=== PATIENT | female | born 1990 | race American Indian/Alaskan Native ===

== ENCOUNTER 2019-02-23 18:59 | Emergency (ER) | payer OTHER ==
--- NOTE | 2019-02-23 19:15 | Emergency Department Report ---
Blank Doc - Documentation Documentation: This is a 28-year-old female that presents with chest pain. Denies any SOB. This initial assessment/diagnostic orders/clinical plan/treatment(s) is/are subject to change based on patient's health status, clinical progression and re- assessment by fellow clinical providers in the ED. Further treatment and workup at subsequent clinical providers discretion. Patient/guardians urged not to elope from the ED as their condition may be serious if not clinically assessed and managed. Initial orders include: 1- Patient sent to [facility] for further evaluation and treatment 2- labs 3- EKG 4- CXR
[2019-02-23 19:36] LABS: Basophils # (Auto) 0.1 K/mm3 (0.0-0.1); Basophils % (Auto) 0.8 % (0.0-1.8); Eosinophils # (Auto) 0.1 K/mm3 (0.0-0.4); Eosinophils % (Auto) 0.7 % (0.0-4.3); Hematocrit 36.3 % (30.3-42.9); Hemoglobin 12.2 gm/dl (10.1-14.3); Lymphocytes # (Auto) 3.5 K/mm3 (1.2-5.4); Lymphocytes % (Auto) 41.1 % (13.4-35.0); Mean Corpuscular HGB Conc 34 % (30-34); Mean Corpuscular Volume 87 fl (79-97); Monocytes # (Auto) 0.5 K/mm3 (0.0-0.8); Monocytes % (Auto) 5.8 % (0.0-7.3); Platelet Count 342 K/mm3 (140-440); Red Blood Count 4.16 M/mm3 (3.65-5.03)
[2019-02-23 19:47] LABS: INR 0.94 (0.87-1.13)
[2019-02-23 19:48] LABS: Partial Thromboplastin Time 22.7 Sec. (24.2-36.6)
[2019-02-23 20:01] VITALS: BP 140/92
[2019-02-23 20:08] LABS: BUN/Creatinine Ratio 13; Blood Urea Nitrogen 9 mg/dL (7-17); Calcium 9.1 mg/dL (8.4-10.2); Hemolysis Index 3
--- NOTE | 2019-02-23 21:28 | Emergency Department Report ---
ED General Adult HPI - General Chief complaint: Chest Pain Stated complaint: CHEST PAIN/BP Time Seen by Provider: 02/23/19 19:14 Source: patient Mode of arrival: Ambulatory Limitations: No Limitations - History of Present Illness Initial comments: 28-year-old -French female presents to the emergency room for intermittent midsternal chest pain. Patient reports that she's had chest pain over a month but the last 2 weeks as gotten worse. Patient also is concern for hypertension and she has not been on her blood pressure medication for a while. Patient is not taking anything for pain. 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 Patient does not have a primary care provider at this moment. -: week(s) (2 weeks pain gotten worst), month(s) (2) Location: chest Radiation: non-radiation Severity scale (0 -10): 6 Quality: aching, sharp Consistency: intermittent Improves with: rest Worsens with: movement Associated Symptoms: chest pain Treatments Prior to Arrival: none - Related Data Previous Rx's Medication Instructions Recorded Last Taken Type Ibuprofen [Motrin 800 MG tab] 800 mg PO Q8HR PRN #30 tablet 02/23/19 Unknown Rx methOCARBAMOL [Robaxin TAB] 500 mg PO BID PRN #20 tab 02/23/19 Unknown Rx Allergies Allergy/AdvReac Type Severity Reaction Status Date / Time No Known Allergies Allergy Unverified 02/23/19 19:05 ED Review of Systems ROS: Stated complaint: CHEST PAIN/BP Other details as noted in HPI Comment: All other systems reviewed and negative Cardiovascular: chest pain ED Past Medical Hx - Past Medical History Previous Medical History?: Yes Hx Hypertension: Yes - Surgical History Past Surgical History?: No - Social History Smoking Status: Current Every Day Smoker Substance Use Type: None - Medications Home Medications: Home Medications Medication Instructions Recorded Confirmed Last Taken Type Ibuprofen [Motrin 800 MG tab] 800 mg PO Q8HR PRN #30 tablet 02/23/19 Unknown Rx methOCARBAMOL [Robaxin TAB] 500 mg PO BID PRN #20 tab 02/23/19 Unknown Rx ED Physical Exam - General Limitations: No Limitations General appearance: alert, in no apparent distress - Head Head exam: Present: atraumatic, normocephalic - Eye Eye exam: Present: normal appearance - ENT ENT exam: Present: mucous membranes moist - Neck Neck exam: Present: normal inspection - Respiratory Respiratory exam: Present: normal lung sounds bilaterally, chest wall tenderness - Cardiovascular Cardiovascular Exam: Present: regular rate - GI/Abdominal GI/Abdominal exam: Present: soft. Absent: distended, tenderness - Extremities Exam Extremities exam: Present: normal inspection, full ROM - Back Exam Back exam: Present: full ROM - Neurological Exam Neurological exam: Present: alert, oriented X3, normal gait - Psychiatric Psychiatric exam: Present: normal affect, normal mood - Skin Skin exam: Present: warm, dry, intact, normal color. Absent: rash ED Course Vital Signs 02/23/19 02/23/19 19:13 20:00 Temperature 98.3 F 98.6 F Pulse Rate 111 H 94 H Respiratory 16 18 Rate Blood Pressure 139/89 Blood Pressure 140/92 [Right] O2 Sat by Pulse 100 96 Oximetry ED Medical Decision Making - Lab Data Result diagrams: 02/23/19 19:20 02/23/19 19:20 - Radiology Data Radiology results: report reviewed Patient: AROLDO LESTER MR#: [id number] : 1990 Acct:[id number] Age/Sex: 28 / F ADM Date: 02/23/19 Loc: ED Attending Dr: Ordering Physician: ENRIQUE SILVA NP Date of Service: 02/23/19 Procedure(s): XR chest routine 2V Accession Number(s): [id number] cc: ENRIQUE SILVA NP Fluoro Time In Minutes: PROCEDURE: XR CHEST ROUTINE 2V TECHNIQUE: PA and lateral chest radiographs were obtained. HISTORY: Chest Pain COMPARISONS: None. FINDINGS: Heart: Normal. Mediastinum/Vessels: Normal. Lungs/Pleural space: No infiltrate, effusion, or pneumothorax. Bony thorax: No acute osseous abnormality. IMPRESSION: No radiographic evidence of acute abnormality. This document is electronically signed by Gale Rosas MD., February 23 2019 09:49:16 PM ET Transcribed By: [facility] Dictated By: GALE ROSAS M.D. Electronically Authenticated By: GALE ROSAS M.D. Signed Date/Time: 02/23/192150 DD/ 30 TD/TT: 02/23/192030 - Medical Decision Making Patient has been evaluated by this provider [facility]. Patient's given pain medication for pain management. Chest x-ray shows no acute abnormalities Negative troponin. Patient has chest wall tenderness. Discussed the patient she will need to take nonsteroidal anti-inflammatories and she can switch it up with Tylenol. Patient verbalized understanding. Critical care attestation.: If time is entered above; I have spent that time in minutes in the direct care of this critically ill patient, excluding procedure time. ED Disposition Clinical Impression: Chest wall tenderness Disposition: - TO HOME OR SELFCARE Is pt being admited?: No Does the pt Need Aspirin: No Condition: Stable Instructions: Chest Pain (ED) Additional Instructions: These take medications as prescribed. Follow up with the primary care provider I have listed one below for your convenience. Prescriptions: Ibuprofen [Motrin 800 MG tab] 800 mg PO Q8HR PRN #30 tablet PRN Reason: Pain , Severe (7-10) methOCARBAMOL [Robaxin TAB] 500 mg PO BID PRN #20 tab PRN Reason: Pain , Severe (7-10) Referrals: JOSHUA MCDERMOTT MD [Primary Care Provider] - 3-5 Days Forms: Work/School Release Form(ED)
[2019-02-23] MEDS ORDERED: TYLENOL PO ONE (21:30)
--- NOTE | 2019-02-23 21:51 | XRay Report ---
PROCEDURE: XR CHEST ROUTINE 2V TECHNIQUE: PA and lateral chest radiographs were obtained. HISTORY: Chest Pain COMPARISONS: None. FINDINGS: Heart: Normal. Mediastinum/Vessels: Normal. Lungs/Pleural space: No infiltrate, effusion, or pneumothorax. Bony thorax: No acute osseous abnormality. IMPRESSION: No radiographic evidence of acute abnormality. This document is electronically signed by Gale Rosas MD., February 23 2019 09:49:16 PM ET
== END 2019-02-23 21:59 | disposition home or self-care (01) ==
LOC: ED 18:59
DX: R07.2 Precordial pain (principal); I10 Essential (primary) hypertension; F17.200 Nicotine dependence, unspecified, uncomplicated
CPT/HCPCS: 36415; 71046; 80048; 84484; 84703; 85025; 85610; 85730; 93005; 93010; 99283

== ENCOUNTER 2019-04-17 11:52 | Emergency (ER) | payer SELFPAY ==
[2019-04-17] MEDS ORDERED: PERCOCET 5/325 PO ONE (12:41)
[2019-04-17] MEDS ORDERED: IBUPROFEN PO ONE (12:41)
[2019-04-17 12:42] VITALS: BP 171/110
--- NOTE | 2019-04-17 12:44 | Event Note ---
ED Screening Note Date of service: 04/17/19 Time: 12:40 ED Screening Note: 28 y/o female comes in for left forearm burn sustain while cooking. Applied cold washcloth. Pain 08/11. This initial assessment/diagnostic orders/clinical plan/treatment(s) is/are subject to change based on patients health status, clinical progression and re- assessment by fellow clinical providers in the ED. Further treatment and workup at subsequent clinical providers discretion. Patient/guardian urged not to elope from the ED as their condition may be serious if not clinically assessed and managed. Initial orders include:
[2019-04-17] MEDS ORDERED: THERMAZENE 50 GRAM TP ONE (13:00)
--- NOTE | 2019-04-17 14:14 | Emergency Department Report ---
Burn HPI - History Stated Complaint: LT ARM BURN Chief Complaint: Burn/Smoke Inhalation Time Seen by Provider: 04/17/19 12:40 Duration of Burn: Today Burn Location: Arms Burn Etiology: Accidental Pain: None Tetanus Status: Up to Date (2019) Symptoms:: No Blistering, No Malaise, No Myalgias, No Fever, No Vomiting, No Abl e to Tolerate Fluids Other History: This is a 28-year-old female nontoxic, well nourished in appearance, no acute signs of distress presents to the ED with c/o left forearm redness status post grease burn. Patient states she was cooking chicken and accidentally grease has spilled on her left forearm. Patient denies any fever, chills, blistering, chest pain, short of breath, nausea, vomiting, headache, stiff neck, numbness or tingling. Patient is up-to-date with tetanus as of 2019. Denies any allergies or significant past medical history. - Home Meds and Allergies Home Medications: Previous Rx's Medication Instructions Recorded Last Taken Type Ibuprofen [Motrin 800 MG tab] 800 mg PO Q8HR PRN #30 tablet 02/23/19 Unknown Rx methOCARBAMOL [Robaxin TAB] 500 mg PO BID PRN #20 tab 02/23/19 Unknown Rx Clindamycin [Clindamycin CAP] 300 mg PO Q8H #21 cap 04/17/19 Unknown Rx HYDROcodone/APAP 10-325 [[place] 1 each PO Q6HR PRN #20 tablet 04/17/19 Unknown Rx 10/325] Silver Sulfadiazine [Silvadene] 1,000 gm TP DAILY #1 cream..g. 04/17/19 Unknown Rx Allergies/Adverse Reactions: Allergies Allergy/AdvReac Type Severity Reaction Status Date / Time No Known Allergies Allergy Verified 04/17/19 12:04 ED Review of Systems ROS: Stated complaint: LT ARM BURN Other details as noted in HPI Constitutional: denies: chills, fever Eyes: denies: eye pain, eye discharge, vision change ENT: denies: ear pain, throat pain Respiratory: denies: cough, shortness of breath, wheezing Cardiovascular: denies: chest pain, palpitations Endocrine: no symptoms reported Gastrointestinal: denies: abdominal pain, nausea, diarrhea Genitourinary: denies: urgency, dysuria, discharge Musculoskeletal: denies: back pain, joint swelling, arthralgia Skin: denies: rash, lesions Neurological: denies: headache, weakness, paresthesias Psychiatric: denies: anxiety, depression Hematological/Lymphatic: denies: easy bleeding, easy bruising ED Past Medical Hx - Past Medical History Hx Hypertension: Yes - Social History Smoking Status: Current Every Day Smoker Substance Use Type: None - Medications Home Medications: Home Medications Medication Instructions Recorded Confirmed Last Taken Type Ibuprofen [Motrin 800 MG tab] 800 mg PO Q8HR PRN #30 tablet 02/23/19 Unknown Rx methOCARBAMOL [Robaxin TAB] 500 mg PO BID PRN #20 tab 02/23/19 Unknown Rx Clindamycin [Clindamycin CAP] 300 mg PO Q8H #21 cap 04/17/19 Unknown Rx HYDROcodone/APAP 10-325 [[place] 1 each PO Q6HR PRN #20 tablet 04/17/19 Unknown Rx 10/325] Silver Sulfadiazine [Silvadene] 1,000 gm TP DAILY #1 cream..g. 04/17/19 Unknown Rx Exam - Exam General: Vital signs noted. No distress. Alert and acting appropriately. HEENT: Yes Moist Mucous Membranes, No Conjuctival Injection, No Corneal Edema Full Body Front + Back: 1 - superficial burn Skin: Yes Erythroderma, Yes Tenderness, No Blistering, No Edema Exam: Yes Normal Heart Sounds, No Respiratory Distress, No Sensory Deficits, No Musculoskeletal Pain ED Course Vital Signs 04/17/19 12:39 Temperature 98.2 F Pulse Rate 100 H Respiratory 18 Rate Blood Pressure 171/110 O2 Sat by Pulse 100 Oximetry - Reevaluation(s) Reevaluation #1: 04/17/19 14:11 Patient is speaking in full sentences with no signs of distress noted. ED Medical Decision Making - Medical Decision Making This is a 20-year-old female who presents with superficial burn. Patient is stable and was examined by me. The arm has been cold down. Silvadene has been applied to the left forearm burn area. Sterile dressing has been applied. Patient will be discharged with clindamycin and pain control medication. Patient was educated on wound burn care. Patient's friend is currently at the bedside in stable drug the patient home after discharge. Patient was instructed to Follow-up with a [facility] unit in 2 days or if symptoms worsen and continue return to emergency room as soon as possible. At time of discharge, the patient does not seem toxic or ill in appearance. No acute signs of distress noted. Patient agrees to discharge treatment plan of care. No further questions noted by the patient. Critical care attestation.: If time is entered above; I have spent that time in minutes in the direct care of this critically ill patient, excluding procedure time. ED Disposition Clinical Impression: Superficial burn of left upper arm Qualifiers: Encounter type: initial encounter Qualified Code(s): T22.132A - Burn of first degree of left upper arm, initial encounter Disposition: TO HOME OR SELFCARE Is pt being admited?: No Does the pt Need Aspirin: No Condition: Stable Instructions: Superficial Burn (ED) Additional Instructions: Follow-up with a [facility] unit in 24 hours or if symptoms worsen and continue return to emergency room as soon as possible. Do not operate any machinery while taking [place] as this may cause drowsiness. Prescriptions: Clindamycin [Clindamycin CAP] 300 mg PO Q8H #21 cap HYDROcodone/APAP 10-325 [[place] 10/325] 1 each PO Q6HR PRN #20 tablet PRN Reason: Pain Silver Sulfadiazine [Silvadene] 1,000 gm TP DAILY #1 cream..g. [facility] [Primary Care Provider] - 3-5 Days PRIMARY MD LINO [Referring] - 3-5 Days OSMANY PURI MD [Staff Physician] - 3-5 Days [facility] [Outside] - 24 Hours Forms: Work/School Release Form(ED)
== END 2019-04-17 14:41 | disposition home or self-care (01) ==
LOC: ED 11:52
DX: T22.00XA Burn of unspecified degree of shoulder and upper limb, except wrist and hand, unspecified site, initial encounter (principal); I10 Essential (primary) hypertension; F17.200 Nicotine dependence, unspecified, uncomplicated; X10.2XXA Contact with fats and cooking oils, initial encounter; Y93.89 Activity, other specified; Y92.89 Other specified places as the place of occurrence of the external cause; Y99.8 Other external cause status

== ENCOUNTER 2019-11-28 01:53 | Emergency (ER) | payer SELFPAY ==
--- NOTE | 2019-11-28 03:27 | Emergency Department Report ---
ED ENT HPI - General Chief complaint: Dental/Oral Stated complaint: TOOTHACHE Time Seen by Provider: 11/28/19 03:21 Source: patient Mode of arrival: Ambulatory Limitations: No Limitations - History of Present Illness MD complaint: tooth pain Location: tooth # Severity: mild, moderate Quality: dull Consistency: constant Improves with: none Worsens with: none Associated Symptoms: toothache - Related Data Previous Rx's Medication Instructions Recorded Last Taken Type Ibuprofen [Motrin 800 MG tab] 800 mg PO Q8HR PRN #30 tablet 02/23/19 Unknown Rx methOCARBAMOL [Robaxin TAB] 500 mg PO BID PRN #20 tab 02/23/19 Unknown Rx Clindamycin [Clindamycin CAP] 300 mg PO Q8H #21 cap 04/17/19 Unknown Rx HYDROcodone/APAP 10-325 [[place] 1 each PO Q6HR PRN #20 tablet 04/17/19 Unknown Rx 10/325] Silver Sulfadiazine [Silvadene] 1,000 gm TP DAILY #1 cream..g. 04/17/19 Unknown Rx Amoxicillin [Amoxicillin TAB] 875 mg PO BID #20 tablet 11/28/19 Unknown Rx Ketorolac [Toradol] 10 mg PO Q6H PRN #20 tablet 11/28/19 Unknown Rx Lidocaine Viscous 2% 15 ml MM Q3HR PRN #300 udc 11/28/19 Unknown Rx Allergies Allergy/AdvReac Type Severity Reaction Status Date / Time hydrocodone [From Lortab] Allergy Unknown Verified 11/28/19 01:57 ED Dental HPI - General Chief complaint: Dental/Oral Stated complaint: TOOTHACHE Time Seen by Provider: 11/28/19 03:21 Source: patient Mode of arrival: Ambulatory Limitations: No Limitations - Related Data Previous Rx's Medication Instructions Recorded Last Taken Type Ibuprofen [Motrin 800 MG tab] 800 mg PO Q8HR PRN #30 tablet 02/23/19 Unknown Rx methOCARBAMOL [Robaxin TAB] 500 mg PO BID PRN #20 tab 02/23/19 Unknown Rx Clindamycin [Clindamycin CAP] 300 mg PO Q8H #21 cap 04/17/19 Unknown Rx HYDROcodone/APAP 10-325 [[place] 1 each PO Q6HR PRN #20 tablet 04/17/19 Unknown Rx 10/325] Silver Sulfadiazine [Silvadene] 1,000 gm TP DAILY #1 cream..g. 04/17/19 Unknown Rx Amoxicillin [Amoxicillin TAB] 875 mg PO BID #20 tablet 11/28/19 Unknown Rx Ketorolac [Toradol] 10 mg PO Q6H PRN #20 tablet 11/28/19 Unknown Rx Lidocaine Viscous 2% 15 ml MM Q3HR PRN #300 udc 11/28/19 Unknown Rx Allergies Allergy/AdvReac Type Severity Reaction Status Date / Time hydrocodone [From Lortab] Allergy Unknown Verified 11/28/19 01:57 ED Review of Systems ROS: Stated complaint: TOOTHACHE Other details as noted in HPI Comment: All other systems reviewed and negative ED Past Medical Hx - Past Medical History Previous Medical History?: Yes Hx Hypertension: Yes - Surgical History Past Surgical History?: No - Social History Smoking Status: Current Every Day Smoker Substance Use Type: None - Medications Home Medications: Home Medications Medication Instructions Recorded Confirmed Last Taken Type Ibuprofen [Motrin 800 MG tab] 800 mg PO Q8HR PRN #30 tablet 02/23/19 Unknown Rx methOCARBAMOL [Robaxin TAB] 500 mg PO BID PRN #20 tab 02/23/19 Unknown Rx Clindamycin [Clindamycin CAP] 300 mg PO Q8H #21 cap 04/17/19 Unknown Rx HYDROcodone/APAP 10-325 [[place] 1 each PO Q6HR PRN #20 tablet 04/17/19 Unknown Rx 10/325] Silver Sulfadiazine [Silvadene] 1,000 gm TP DAILY #1 cream..g. 04/17/19 Unknown Rx Amoxicillin [Amoxicillin TAB] 875 mg PO BID #20 tablet 11/28/19 Unknown Rx Ketorolac [Toradol] 10 mg PO Q6H PRN #20 tablet 11/28/19 Unknown Rx Lidocaine Viscous 2% 15 ml MM Q3HR PRN #300 udc 11/28/19 Unknown Rx ED Physical Exam - General Limitations: No Limitations General appearance: alert, in no apparent distress - Head Head exam: Present: atraumatic, normocephalic - Eye Eye exam: Present: normal appearance - ENT ENT exam: Present: mucous membranes moist, other (severe dental erosion to the right lower gingival region region with some mild swelling resembling that of an abscess. Airway tongue and uvula are midline no peritonsillar abscess is noted no discharge. No lymphadenopathy) - Neck Neck exam: Present: normal inspection - Respiratory Respiratory exam: Present: normal lung sounds bilaterally. Absent: respiratory distress - Cardiovascular Cardiovascular Exam: Present: regular rate, normal rhythm. Absent: systolic murmur, diastolic murmur, rubs, gallop - GI/Abdominal GI/Abdominal exam: Present: soft, normal bowel sounds - Extremities Exam Extremities exam: Present: normal inspection - Back Exam Back exam: Present: normal inspection - Neurological Exam Neurological exam: Present: alert, oriented X3 - Psychiatric Psychiatric exam: Present: normal affect, normal mood - Skin Skin exam: Present: warm, dry, intact, normal color. Absent: rash ED Course Vital Signs 11/28/19 01:57 Temperature 98.9 F Pulse Rate 89 Respiratory 18 Rate Blood Pressure 160/104 O2 Sat by Pulse 100 Oximetry Critical care attestation.: If time is entered above; I have spent that time in minutes in the direct care of this critically ill patient, excluding procedure time. ED Disposition Clinical Impression: Dentalgia Disposition: - TO HOME OR SELFCARE Is pt being admited?: No Does the pt Need Aspirin: No Condition: Stable Instructions: Toothache (ED), Dental Caries (ED) Prescriptions: Amoxicillin [Amoxicillin TAB] 875 mg PO BID #20 tablet Lidocaine Viscous 2% 15 ml MM Q3HR PRN #300 udc PRN Reason: dental pain Ketorolac [Toradol] 10 mg PO Q6H PRN #20 tablet PRN Reason: Pain Referrals: [facility] [Outside] - 3-5 Days
[2019-11-28 04:26] VITALS: BP 126/82
== END 2019-11-28 04:34 | disposition home or self-care (01) ==
LOC: ED 01:53
DX: K08.89 Other specified disorders of teeth and supporting structures (principal); I10 Essential (primary) hypertension; F17.200 Nicotine dependence, unspecified, uncomplicated; Z79.899 Other long term (current) drug therapy; Z88.5 Allergy status to narcotic agent